=== PATIENT | female | born 1950 | race Caucasian/White ===

== ENCOUNTER 2016-06-12 14:12 | Inpatient (IN) | payer MEDICARE, MEDICAID ==
[~2016-06-12] VITALS: Ht 154.9 cm; Wt 73.8 kg
[2016-06-12] MEDS ORDERED: CEFTRIAXONE 1 GM VIAL ONE (20:59)
[2016-06-12] MEDS ORDERED: SODIUM CHLORIDE 0.9% 1,000 ML ONE (21:00)
[2016-06-12] MEDS ORDERED: SODIUM CHLORIDE 0.9% 100 ML IV ONE (21:00)
[2016-06-12] MEDS ORDERED: VANCOMYCIN 1,500 MG in SODIUM CHLORIDE 0.9% 250 ML IV ONE (22:40)
[2016-06-12] MEDS ORDERED: DEXTROSE 50% SYRINGE 50 ML IV PRN (23:20)
[2016-06-12] MEDS ORDERED: GLUCAGON 1 MG VIAL IM PRN (23:20)
[2016-06-12] MEDS ORDERED: ACETAMINOPHEN 325 MG TAB PO PRN (23:20)
[2016-06-13] VITALS (8 sets, daily range): BP systolic 98–150; RESP 18–20; TEMP 97.7–99.5; Ht 154.9 cm; Wt 73.8 kg
[2016-06-13] MEDS: SOD CHLOR 0.9% 1000 ML IV SCH ×2 (02:58→12:02)
[2016-06-13] MEDS: CEFTRIAXONE 1 GM in SODIUM CHLORIDE 0.9% 50 ML IV SCH (09:11)
[2016-06-13] MEDS ORDERED: PHARMACY TO DOSE VANCOMYCIN IM SCH (10:15)
[2016-06-13] MEDS ORDERED: PHARMACY TO DOSE VANCOMYCIN IV SCH (10:35)
[2016-06-13] MEDS ORDERED: DILTIAZEM CD 240 MG CAP PO SCH (11:45)
[2016-06-13] MEDS: DUONEB INH SCH ×4 (12:20→22:48)
[2016-06-13] MEDS: NEB-BUDESONIDE 0.5 MG INH SCH ×2 (12:20→18:31)
[2016-06-13] MEDS ORDERED: SODIUM CHLORIDE 0.9% 1,000 ML IV SCH (14:00)
[2016-06-13] MEDS: OXYBUTYNIN 5 MG TAB PO SCH ×2 (14:05→21:38)
[2016-06-13] MEDS: PAROXETINE HCL 20 MG TAB PO SCH (14:05)
[2016-06-13] MEDS: FAMOTIDINE 20 MG TAB PO SCH ×2 (14:05→21:38)
[2016-06-13] MEDS: SACCHA BOULARDII 250MG CAP PO SCH ×3 (14:05→21:38)
[2016-06-13] MEDS: EZETIMIBE 10 MG TAB PO SCH (14:06)
[2016-06-13] MEDS: DULoxetine 30 MG CAP PO SCH (14:06)
[2016-06-13] MEDS: PIOGLITAZONE 15 MG TAB PO SCH (14:06)
[2016-06-13] MEDS: CYANOCOBA 500 MCG TAB PO SCH (14:06)
[2016-06-13] MEDS: GABAPENTIN 100 MG CAP PO SCH ×3 (14:06→21:38)
[2016-06-13] MEDS: METOPROLOL TART 25 MG TAB PO SCH ×2 (14:06→21:38)
[2016-06-13] MEDS: MAG OXIDE 400 MG TAB PO SCH ×2 (14:07→21:38)
[2016-06-13] MEDS ORDERED: KCL CR 10 MEQ CAP PO ONE (15:50)
[2016-06-13] MEDS: LIDOCAINE 5% 700 MG PATCH TOPICAL SCH (16:29)
[2016-06-14] MEDS ORDERED: VANCOMYCIN 1,500 MG in SODIUM CHLORIDE 0.9% 250 ML IV SCH (01:00)
[2016-06-14 04:24] VITALS: BP_SYST 117; RESP 18; TEMP 98.2
[2016-06-14] MEDS: NEB-BUDESONIDE 0.5 MG INH SCH ×2 (07:06→19:05)
[2016-06-14] MEDS: DUONEB INH SCH ×4 (07:06→23:16)
[2016-06-14 07:42] VITALS: BP_SYST 111; RESP 18; TEMP 98.2
[2016-06-14] MEDS: DILTIAZEM CD 180 MG CAP PO SCH (09:04)
[2016-06-14] MEDS: SACCHA BOULARDII 250MG CAP PO SCH ×3 (09:04→20:59)
[2016-06-14] MEDS: PIOGLITAZONE 15 MG TAB PO SCH (09:04)
[2016-06-14] MEDS: EZETIMIBE 10 MG TAB PO SCH (09:05)
[2016-06-14] MEDS: CYANOCOBA 500 MCG TAB PO SCH (09:05)
[2016-06-14] MEDS: DULoxetine 30 MG CAP PO SCH (09:05)
[2016-06-14] MEDS: METOPROLOL TART 25 MG TAB PO SCH ×2 (09:05→21:00)
[2016-06-14] MEDS: MAG OXIDE 400 MG TAB PO SCH ×2 (09:05→20:59)
[2016-06-14] MEDS: PAROXETINE HCL 20 MG TAB PO SCH (09:05)
[2016-06-14] MEDS: FAMOTIDINE 20 MG TAB PO SCH ×2 (09:05→20:59)
[2016-06-14] MEDS: OXYBUTYNIN 5 MG TAB PO SCH ×2 (09:05→21:00)
[2016-06-14] MEDS: GABAPENTIN 100 MG CAP PO SCH ×3 (09:05→20:59)
[2016-06-14] MEDS: CEFTRIAXONE 1 GM in SODIUM CHLORIDE 0.9% 50 ML IV SCH (09:08)
[2016-06-14] MEDS: LIDOCAINE 5% 700 MG PATCH TOPICAL SCH (09:08)
[2016-06-14 11:13] VITALS: BP_SYST 108; RESP 18; TEMP 97.6
[2016-06-14] MEDS ORDERED: SODIUM CHLORIDE 0.9% 1,000 ML IV SCH (12:40)
[2016-06-14] MEDS ORDERED: EPOETIN 40,000 UNIT VIAL SUBQ ONE (12:40)
[2016-06-14] MEDS ORDERED: PHARMACY TO DOSE XX SCH (14:20)
[2016-06-14] MEDS: MAGNESIUM SULF 1 GM/100 ML 100 ML IV SCH ×2 (14:30→17:32)
[2016-06-14] MEDS ORDERED: FENTANYL 50 MCG/HR PATCH TRANSDERM SCH (14:33)
[2016-06-14 15:42] VITALS: BP_SYST 128; RESP 16; TEMP 97.6
[2016-06-14] MEDS: ERTAPENEM 1,000 MG in SODIUM CHLORIDE 0.9% 50 ML IV SCH (15:55)
[2016-06-14] MEDS ORDERED: VANCOMYCIN 1,000 MG in SODIUM CHLORIDE 0.9% 250 ML IV SCH (18:00)
[2016-06-14] MEDS ORDERED: SODIUM CHLORIDE 0.9% IV SCH (18:00)
[2016-06-14] MEDS ORDERED: SULBACTAM IV SCH (18:00)
[2016-06-14 19:58] VITALS: BP_SYST 136; RESP 20; TEMP 98
[2016-06-14 22:39] VITALS: BP_SYST 140; RESP 20; TEMP 97.8
[2016-06-15 01:42] VITALS: BP_SYST 132; RESP 18; TEMP 98.1
[2016-06-15] MEDS: DUONEB INH SCH ×4 (06:45→23:04)
[2016-06-15] MEDS: NEB-BUDESONIDE 0.5 MG INH SCH ×2 (06:45→18:49)
[2016-06-15 07:17] VITALS: BP_SYST 128; RESP 16; TEMP 98
[2016-06-15] MEDS: MAG OXIDE 400 MG TAB PO SCH ×2 (09:06→22:08)
[2016-06-15] MEDS: FAMOTIDINE 20 MG TAB PO SCH ×2 (09:07→22:08)
[2016-06-15] MEDS: METOPROLOL TART 25 MG TAB PO SCH ×2 (09:07→22:09)
[2016-06-15] MEDS: GABAPENTIN 100 MG CAP PO SCH ×3 (09:07→22:09)
[2016-06-15] MEDS: PIOGLITAZONE 15 MG TAB PO SCH (09:07)
[2016-06-15] MEDS: PAROXETINE HCL 20 MG TAB PO SCH (09:07)
[2016-06-15] MEDS: DILTIAZEM CD 180 MG CAP PO SCH (09:07)
[2016-06-15] MEDS: EZETIMIBE 10 MG TAB PO SCH (09:07)
[2016-06-15] MEDS: SACCHA BOULARDII 250MG CAP PO SCH ×3 (09:07→22:08)
[2016-06-15] MEDS: OXYBUTYNIN 5 MG TAB PO SCH ×2 (09:08→22:08)
[2016-06-15] MEDS: DULoxetine 30 MG CAP PO SCH (09:08)
[2016-06-15] MEDS: CYANOCOBA 500 MCG TAB PO SCH (09:08)
[2016-06-15] MEDS: LIDOCAINE 5% 700 MG PATCH TOPICAL SCH (09:13)
[2016-06-15 11:42] VITALS: BP_SYST 124; RESP 18; TEMP 97.8
[2016-06-15 14:50] VITALS: BP_SYST 124; RESP 16; TEMP 97.9
[2016-06-15] MEDS: ERTAPENEM 1,000 MG in SODIUM CHLORIDE 0.9% 50 ML IV SCH (16:46)
[2016-06-15 19:25] VITALS: BP_SYST 134; RESP 18; TEMP 98.1
[2016-06-15] MEDS ORDERED: SALINE FLUSH 10 ML FLUSH PRN (21:50)
[2016-06-15 23:25] VITALS: BP_SYST 120; RESP 18; TEMP 97.8
[2016-06-16 03:43] VITALS: BP_SYST 138; RESP 18; TEMP 98.2
[2016-06-16] MEDS: SODIUM CHLORIDE 0.9% FLUSH BAG 500 ML IV SCH (04:23)
[2016-06-16] MEDS: DUONEB INH SCH ×4 (07:29→22:35)
[2016-06-16] MEDS: NEB-BUDESONIDE 0.5 MG INH SCH ×2 (07:29→19:36)
[2016-06-16 08:23] VITALS: BP_SYST 136; RESP 18; TEMP 98.6
[2016-06-16] MEDS: SALINE FLUSH 10 ML FLUSH SCH ×2 (09:01→22:05)
[2016-06-16] MEDS: EZETIMIBE 10 MG TAB PO SCH (09:01)
[2016-06-16] MEDS: CYANOCOBA 500 MCG TAB PO SCH (09:02)
[2016-06-16] MEDS: MAG OXIDE 400 MG TAB PO SCH ×2 (09:02→22:05)
[2016-06-16] MEDS: FAMOTIDINE 20 MG TAB PO SCH ×2 (09:02→22:05)
[2016-06-16] MEDS: DILTIAZEM CD 180 MG CAP PO SCH (09:02)
[2016-06-16] MEDS: SACCHA BOULARDII 250MG CAP PO SCH ×3 (09:03→22:05)
[2016-06-16] MEDS: DULoxetine 30 MG CAP PO SCH (09:03)
[2016-06-16] MEDS: OXYBUTYNIN 5 MG TAB PO SCH ×2 (09:03→22:05)
[2016-06-16] MEDS: METOPROLOL TART 25 MG TAB PO SCH ×2 (09:04→22:05)
[2016-06-16] MEDS: PIOGLITAZONE 15 MG TAB PO SCH (09:04)
[2016-06-16] MEDS: GABAPENTIN 100 MG CAP PO SCH ×3 (09:04→22:05)
[2016-06-16] MEDS: PAROXETINE HCL 20 MG TAB PO SCH (09:04)
[2016-06-16] MEDS: LIDOCAINE 5% 700 MG PATCH TOPICAL SCH (09:04)
[2016-06-16 11:07] VITALS: BP_SYST 132; RESP 20; TEMP 98.8
[2016-06-16 14:46] VITALS: BP_SYST 128; RESP 20; TEMP 98.3
[2016-06-16] MEDS ORDERED: MISSING DOSE XX ONE (17:25)
[2016-06-16] MEDS: ERTAPENEM 1,000 MG in SODIUM CHLORIDE 0.9% 50 ML IV SCH (18:25)
[2016-06-16 19:50] VITALS: BP_SYST 126; RESP 18; TEMP 98.8
[2016-06-16 23:39] VITALS: BP_SYST 128; RESP 20; TEMP 97.7
[2016-06-17] MEDS ORDERED: MISSING DOSE XX ONE (00:35)
[2016-06-17] MEDS: DUONEB INH SCH ×4 (03:18→22:57)
[2016-06-17 03:27] VITALS: BP_SYST 136; RESP 18; TEMP 98.8
[2016-06-17] MEDS: NEB-BUDESONIDE 0.5 MG INH SCH ×2 (05:12→18:30)
[2016-06-17] MEDS: SODIUM CHLORIDE 0.9% FLUSH BAG 500 ML IV SCH (05:20)
[2016-06-17 07:44] VITALS: BP_SYST 142; RESP 16; TEMP 98.9
[2016-06-17] MEDS: SALINE FLUSH 10 ML FLUSH SCH ×2 (08:38→22:11)
[2016-06-17] MEDS: EZETIMIBE 10 MG TAB PO SCH (08:38)
[2016-06-17] MEDS: PAROXETINE HCL 20 MG TAB PO SCH (08:39)
[2016-06-17] MEDS: SACCHA BOULARDII 250MG CAP PO SCH ×3 (08:39→22:08)
[2016-06-17] MEDS: METOPROLOL TART 25 MG TAB PO SCH ×2 (08:39→22:09)
[2016-06-17] MEDS: GABAPENTIN 100 MG CAP PO SCH ×3 (08:39→22:08)
[2016-06-17] MEDS: OXYBUTYNIN 5 MG TAB PO SCH ×2 (08:39→22:09)
[2016-06-17] MEDS: MAG OXIDE 400 MG TAB PO SCH ×2 (08:39→22:08)
[2016-06-17] MEDS: DULoxetine 30 MG CAP PO SCH (08:39)
[2016-06-17] MEDS: FAMOTIDINE 20 MG TAB PO SCH ×2 (08:39→22:08)
[2016-06-17] MEDS: PIOGLITAZONE 15 MG TAB PO SCH (08:40)
[2016-06-17] MEDS: DILTIAZEM CD 180 MG CAP PO SCH (08:40)
[2016-06-17] MEDS: LIDOCAINE 5% 700 MG PATCH TOPICAL SCH (08:40)
[2016-06-17] MEDS: CYANOCOBA 500 MCG TAB PO SCH (08:42)
[2016-06-17 10:56] VITALS: BP_SYST 172; RESP 20; TEMP 99.1
[2016-06-17] MEDS: REMOVE FENTANYL PATCH XX SCH (13:00)
[2016-06-17] MEDS: ERTAPENEM 1,000 MG in SODIUM CHLORIDE 0.9% 50 ML IV SCH (16:01)
[2016-06-17 16:46] VITALS: BP_SYST 165; RESP 20; TEMP 98.6
[2016-06-17 20:05] VITALS: BP_SYST 130; RESP 18; TEMP 98.3
[2016-06-17 22:37] VITALS: BP_SYST 140; RESP 19; TEMP 98.3
[2016-06-18 02:45] VITALS: BP_SYST 132; RESP 18; TEMP 98.3
[2016-06-18] MEDS: SODIUM CHLORIDE 0.9% FLUSH BAG 500 ML IV SCH (05:32)
[2016-06-18] MEDS: DUONEB INH SCH ×5 (06:34→23:43)
[2016-06-18] MEDS ORDERED: MAGNEVIST 15ML IV ONE (07:24)
[2016-06-18 08:06] VITALS: BP_SYST 152; RESP 20; TEMP 97.8
[2016-06-18] MEDS: NEB-BUDESONIDE 0.5 MG INH SCH ×2 (08:13→19:19)
[2016-06-18] MEDS ORDERED: Furosemide 40 MG/4 ML VIAL IV ONE (09:45)
[2016-06-18] MEDS ORDERED: KCL CR 10 MEQ CAP PO ONE (09:45)
[2016-06-18] MEDS: MAGNESIUM SULF 1 GM/100 ML 100 ML IV SCH ×2 (10:31→12:40)
[2016-06-18] MEDS: LIDOCAINE 5% 700 MG PATCH TOPICAL SCH (10:32)
[2016-06-18] MEDS: SALINE FLUSH 10 ML FLUSH SCH ×2 (10:32→21:46)
[2016-06-18] MEDS: OXYBUTYNIN 5 MG TAB PO SCH ×2 (10:32→21:45)
[2016-06-18] MEDS: GABAPENTIN 100 MG CAP PO SCH ×2 (10:33→17:07)
[2016-06-18] MEDS: DULoxetine 30 MG CAP PO SCH (10:33)
[2016-06-18] MEDS: FAMOTIDINE 20 MG TAB PO SCH ×2 (10:33→21:45)
[2016-06-18] MEDS: SACCHA BOULARDII 250MG CAP PO SCH ×3 (10:33→21:45)
[2016-06-18] MEDS: CYANOCOBA 500 MCG TAB PO SCH (10:33)
[2016-06-18] MEDS: PAROXETINE HCL 20 MG TAB PO SCH (10:33)
[2016-06-18] MEDS: METOPROLOL TART 25 MG TAB PO SCH ×2 (10:34→21:45)
[2016-06-18] MEDS: DILTIAZEM CD 180 MG CAP PO SCH (10:34)
[2016-06-18] MEDS: EZETIMIBE 10 MG TAB PO SCH (10:34)
[2016-06-18] MEDS: PIOGLITAZONE 15 MG TAB PO SCH (10:34)
[2016-06-18] MEDS: MAG OXIDE 400 MG TAB PO SCH ×2 (10:35→21:45)
[2016-06-18 12:59] VITALS: BP_SYST 168; RESP 20; TEMP 97.7
[2016-06-18] MEDS ORDERED: FENTANYL 25 MCG/24 HR PATCH TRANSDERM SCH (13:00)
[2016-06-18] MEDS ORDERED: REMOVE FENTANYL PATCH XX SCH (13:00)
[2016-06-18] MEDS: ERTAPENEM 1,000 MG in SODIUM CHLORIDE 0.9% 50 ML IV SCH (15:28)
[2016-06-18 15:33] VITALS: BP_SYST 132; RESP 18; TEMP 97.4
[2016-06-18 20:10] VITALS: BP_SYST 140; TEMP 97.8
[2016-06-18 22:59] VITALS: BP_SYST 144; RESP 20; TEMP 98.1
[2016-06-19 02:35] VITALS: BP_SYST 140; RESP 20; TEMP 97.7
[2016-06-19] MEDS: SODIUM CHLORIDE 0.9% FLUSH BAG 500 ML IV SCH (05:08)
[2016-06-19 07:11] VITALS: BP_SYST 148; RESP 18; TEMP 97.9
[2016-06-19] MEDS: DUONEB INH SCH ×4 (07:17→22:34)
[2016-06-19] MEDS: NEB-BUDESONIDE 0.5 MG INH SCH ×2 (07:17→19:10)
[2016-06-19] MEDS: LIDOCAINE 5% 700 MG PATCH TOPICAL SCH (08:43)
[2016-06-19] MEDS: SALINE FLUSH 10 ML FLUSH SCH ×2 (08:43→20:40)
[2016-06-19] MEDS: FAMOTIDINE 20 MG TAB PO SCH ×2 (08:49→20:40)
[2016-06-19] MEDS: SACCHA BOULARDII 250MG CAP PO SCH ×3 (08:49→20:40)
[2016-06-19] MEDS: PAROXETINE HCL 20 MG TAB PO SCH (08:49)
[2016-06-19] MEDS: MAG OXIDE 400 MG TAB PO SCH ×2 (08:49→20:40)
[2016-06-19] MEDS: PIOGLITAZONE 15 MG TAB PO SCH (08:49)
[2016-06-19] MEDS: OXYBUTYNIN 5 MG TAB PO SCH ×2 (08:49→20:43)
[2016-06-19] MEDS: DILTIAZEM CD 180 MG CAP PO SCH (08:49)
[2016-06-19] MEDS: EZETIMIBE 10 MG TAB PO SCH (08:49)
[2016-06-19] MEDS: CYANOCOBA 500 MCG TAB PO SCH (08:50)
[2016-06-19] MEDS: METOPROLOL TART 25 MG TAB PO SCH ×2 (08:50→20:40)
[2016-06-19] MEDS: DULoxetine 30 MG CAP PO SCH (08:50)
[2016-06-19 11:57] VITALS: BP_SYST 134; RESP 18; TEMP 97.7
[2016-06-19] MEDS ORDERED: KCL CR 10 MEQ CAP PO ONE (13:35)
[2016-06-19 15:00] VITALS: BP_SYST 142; RESP 16; TEMP 98
[2016-06-19] MEDS: ERTAPENEM 1,000 MG in SODIUM CHLORIDE 0.9% 50 ML IV SCH (17:46)
[2016-06-19 19:51] VITALS: BP_SYST 148; RESP 16; TEMP 98.1
[2016-06-19 22:35] VITALS: BP_SYST 148; RESP 16; TEMP 98.4
[2016-06-20] MEDS: SODIUM CHLORIDE 0.9% FLUSH BAG 500 ML IV SCH (06:00)
[2016-06-20] MEDS: NEB-BUDESONIDE 0.5 MG INH SCH ×2 (07:10→19:28)
[2016-06-20] MEDS: DUONEB INH SCH ×4 (07:10→23:05)
[2016-06-20 08:18] VITALS: BP_SYST 140; RESP 18; TEMP 97.7
[2016-06-20] MEDS: SALINE FLUSH 10 ML FLUSH SCH ×2 (08:39→19:54)
[2016-06-20] MEDS: CYANOCOBA 500 MCG TAB PO SCH (08:40)
[2016-06-20] MEDS: EZETIMIBE 10 MG TAB PO SCH (08:40)
[2016-06-20] MEDS: SACCHA BOULARDII 250MG CAP PO SCH ×3 (08:41→19:44)
[2016-06-20] MEDS: PAROXETINE HCL 20 MG TAB PO SCH (08:41)
[2016-06-20] MEDS: PIOGLITAZONE 15 MG TAB PO SCH (08:41)
[2016-06-20] MEDS: METOPROLOL TART 25 MG TAB PO SCH ×2 (08:41→19:45)
[2016-06-20] MEDS: FAMOTIDINE 20 MG TAB PO SCH ×2 (08:41→19:44)
[2016-06-20] MEDS: OXYBUTYNIN 5 MG TAB PO SCH ×2 (08:41→19:44)
[2016-06-20] MEDS: DILTIAZEM CD 180 MG CAP PO SCH (08:41)
[2016-06-20] MEDS: DULoxetine 30 MG CAP PO SCH (08:42)
[2016-06-20] MEDS: LIDOCAINE 5% 700 MG PATCH TOPICAL SCH (08:43)
[2016-06-20] MEDS: MAG OXIDE 400 MG TAB PO SCH ×2 (08:56→19:45)
[2016-06-20 12:01] VITALS: BP_SYST 139; RESP 20; TEMP 97.5
[2016-06-20] MEDS: REMOVE FENTANYL PATCH XX SCH (13:00)
[2016-06-20] MEDS: ERTAPENEM 1,000 MG in SODIUM CHLORIDE 0.9% 50 ML IV SCH (15:24)
[2016-06-20 16:00] VITALS: BP_SYST 150; RESP 18; TEMP 98.2
[2016-06-20] MEDS: MAGNESIUM SULF 1 GM/100 ML 100 ML IV SCH ×2 (16:00→17:00)
[2016-06-20] MEDS: METFORMIN XR 500 MG TAB PO SCH (19:44)
[2016-06-20] MEDS: QUEtiapine 25 MG TAB PO SCH (19:45)
[2016-06-20 20:15] VITALS: BP_SYST 154; RESP 18; TEMP 97.1
[2016-06-20] MEDS: NYSTATIN 500,000 UNITS/5 ML SUSP SWISH.SWAL SCH (21:42)
[2016-06-20] MEDS: NYSTATIN PWD 100,000 UNITS/GM 15 GM TOPICAL SCH (21:43)
[2016-06-20] MEDS: FLUCONAZOLE 100 MG TAB PO SCH (21:43)
[2016-06-20 23:27] VITALS: BP_SYST 160; RESP 18; TEMP 97.6
[2016-06-21 03:08] VITALS: BP_SYST 146; RESP 20; TEMP 98.1
[2016-06-21] MEDS: SODIUM CHLORIDE 0.9% FLUSH BAG 500 ML IV SCH (04:52)
[2016-06-21] MEDS: DUONEB INH SCH ×4 (07:26→22:23)
[2016-06-21] MEDS: NEB-BUDESONIDE 0.5 MG INH SCH ×2 (07:29→19:00)
[2016-06-21 08:16] VITALS: BP_SYST 136; RESP 20; TEMP 98
[2016-06-21] MEDS: SALINE FLUSH 10 ML FLUSH SCH ×2 (09:32→20:01)
[2016-06-21] MEDS: NYSTATIN 500,000 UNITS/5 ML SUSP SWISH.SWAL SCH ×4 (09:32→20:04)
[2016-06-21] MEDS: FLUCONAZOLE 100 MG TAB PO SCH (09:33)
[2016-06-21] MEDS: PIOGLITAZONE 15 MG TAB PO SCH (09:33)
[2016-06-21] MEDS: DULoxetine 30 MG CAP PO SCH (09:33)
[2016-06-21] MEDS: DILTIAZEM CD 180 MG CAP PO SCH (09:33)
[2016-06-21] MEDS: METFORMIN XR 500 MG TAB PO SCH ×2 (09:33→20:01)
[2016-06-21] MEDS: LIDOCAINE 5% 700 MG PATCH TOPICAL SCH (09:34)
[2016-06-21] MEDS: CYANOCOBA 500 MCG TAB PO SCH (09:35)
[2016-06-21] MEDS: FAMOTIDINE 20 MG TAB PO SCH ×2 (09:35→20:01)
[2016-06-21] MEDS: NYSTATIN PWD 100,000 UNITS/GM 15 GM TOPICAL SCH ×3 (09:35→20:04)
[2016-06-21] MEDS: PAROXETINE HCL 20 MG TAB PO SCH (09:35)
[2016-06-21] MEDS: OXYBUTYNIN 5 MG TAB PO SCH ×2 (09:37→20:01)
[2016-06-21] MEDS: MAG OXIDE 400 MG TAB PO SCH ×2 (09:37→20:02)
[2016-06-21] MEDS: EZETIMIBE 10 MG TAB PO SCH (09:37)
[2016-06-21] MEDS: METOPROLOL TART 25 MG TAB PO SCH ×2 (09:37→20:01)
[2016-06-21] MEDS: SACCHA BOULARDII 250MG CAP PO SCH ×3 (09:37→20:01)
[2016-06-21 11:15] VITALS: BP_SYST 142; RESP 20; TEMP 98.3
[2016-06-21] MEDS: MAGNESIUM SULF 1 GM/100 ML 100 ML IV SCH ×2 (14:25→16:37)
[2016-06-21] MEDS: ERTAPENEM 1,000 MG in SODIUM CHLORIDE 0.9% 50 ML IV SCH (15:34)
[2016-06-21 16:24] VITALS: BP_SYST 126; RESP 20; TEMP 98
[2016-06-21 19:18] VITALS: BP_SYST 140; RESP 20; TEMP 98.4
[2016-06-21] MEDS: QUEtiapine 25 MG TAB PO SCH (20:01)
[2016-06-21] MEDS ORDERED: KCL CR 10 MEQ CAP PO ONE (20:40)
[2016-06-21] MEDS ORDERED: LOPERAMIDE 2 MG CAPSULE PO PRN (20:45)
[2016-06-21 23:20] VITALS: BP_SYST 148; TEMP 97.3
[2016-06-22] MEDS: SODIUM CHLORIDE 0.9% FLUSH BAG 500 ML IV SCH (03:33)
[2016-06-22 04:32] VITALS: BP_SYST 130; RESP 20; TEMP 97.6
[2016-06-22] MEDS: DUONEB INH SCH ×3 (07:00→18:50)
[2016-06-22] MEDS: NEB-BUDESONIDE 0.5 MG INH SCH ×2 (07:00→18:50)
[2016-06-22 07:42] VITALS: BP_SYST 148; RESP 18
[2016-06-22] MEDS: MAG OXIDE 400 MG TAB PO SCH ×2 (08:40→19:55)
[2016-06-22] MEDS: NYSTATIN 500,000 UNITS/5 ML SUSP SWISH.SWAL SCH ×4 (08:59→19:55)
[2016-06-22] MEDS: SALINE FLUSH 10 ML FLUSH SCH ×2 (08:59→19:55)
[2016-06-22] MEDS: LIDOCAINE 5% 700 MG PATCH TOPICAL SCH (08:59)
[2016-06-22] MEDS: NYSTATIN PWD 100,000 UNITS/GM 15 GM TOPICAL SCH ×3 (09:02→19:57)
[2016-06-22] MEDS: CYANOCOBA 500 MCG TAB PO SCH (09:10)
[2016-06-22] MEDS: METFORMIN XR 500 MG TAB PO SCH ×2 (09:10→20:05)
[2016-06-22] MEDS: METOPROLOL TART 25 MG TAB PO SCH ×2 (09:11→19:56)
[2016-06-22] MEDS: FAMOTIDINE 20 MG TAB PO SCH ×2 (09:11→19:56)
[2016-06-22] MEDS: PAROXETINE HCL 20 MG TAB PO SCH (09:11)
[2016-06-22] MEDS: EZETIMIBE 10 MG TAB PO SCH (09:11)
[2016-06-22] MEDS: OXYBUTYNIN 5 MG TAB PO SCH (09:11)
[2016-06-22] MEDS: DILTIAZEM CD 180 MG CAP PO SCH (09:11)
[2016-06-22] MEDS: PIOGLITAZONE 15 MG TAB PO SCH (09:11)
[2016-06-22] MEDS: DULoxetine 30 MG CAP PO SCH (09:11)
[2016-06-22] MEDS: SACCHA BOULARDII 250MG CAP PO SCH ×3 (09:11→19:56)
[2016-06-22] MEDS: FLUCONAZOLE 100 MG TAB PO SCH (09:13)
[2016-06-22 11:20] VITALS: BP_SYST 156; RESP 18; TEMP 97.1
[2016-06-22] MEDS: ERTAPENEM 1,000 MG in SODIUM CHLORIDE 0.9% 50 ML IV SCH (15:52)
[2016-06-22 16:11] VITALS: BP_SYST 150; RESP 16; TEMP 97.6
[2016-06-22] MEDS: METRONIDAZOLE 250 MG TAB PO SCH ×2 (17:38→19:56)
[2016-06-22 19:34] VITALS: BP_SYST 144; RESP 18; TEMP 97.8
[2016-06-22] MEDS ORDERED: MISSING DOSE XX ONE (19:35)
[2016-06-22] MEDS: QUEtiapine 25 MG TAB PO SCH (19:56)
[2016-06-22] MEDS: TRAMADOL 50 MG TAB PO PRN (19:59)
[2016-06-22 22:37] VITALS: BP_SYST 132; RESP 20; TEMP 98.2
[2016-06-23] MEDS: SODIUM CHLORIDE 0.9% FLUSH BAG 500 ML IV SCH (05:39)
[2016-06-23 06:41] VITALS: BP_SYST 136; RESP 18; TEMP 98.3
[2016-06-23] MEDS: NEB-BUDESONIDE 0.5 MG INH SCH ×2 (06:41→19:45)
[2016-06-23] MEDS: DUONEB INH SCH ×2 (06:42→19:45)
[2016-06-23 08:08] VITALS: BP_SYST 140; RESP 20; TEMP 97.5
[2016-06-23] MEDS: SALINE FLUSH 10 ML FLUSH SCH ×2 (08:40→20:03)
[2016-06-23] MEDS: PIOGLITAZONE 15 MG TAB PO SCH (08:44)
[2016-06-23] MEDS: DULoxetine 30 MG CAP PO SCH (08:45)
[2016-06-23] MEDS: METFORMIN XR 500 MG TAB PO SCH ×2 (08:45→20:02)
[2016-06-23] MEDS: CYANOCOBA 500 MCG TAB PO SCH (08:46)
[2016-06-23] MEDS: SACCHA BOULARDII 250MG CAP PO SCH ×3 (08:46→20:02)
[2016-06-23] MEDS: PAROXETINE HCL 20 MG TAB PO SCH (08:47)
[2016-06-23] MEDS: FAMOTIDINE 20 MG TAB PO SCH ×2 (08:47→20:02)
[2016-06-23] MEDS: METRONIDAZOLE 250 MG TAB PO SCH ×4 (08:48→20:02)
[2016-06-23] MEDS: FLUCONAZOLE 100 MG TAB PO SCH (08:48)
[2016-06-23] MEDS: DILTIAZEM CD 180 MG CAP PO SCH (08:48)
[2016-06-23] MEDS: EZETIMIBE 10 MG TAB PO SCH (08:49)
[2016-06-23] MEDS: MAG OXIDE 400 MG TAB PO SCH ×2 (08:49→20:02)
[2016-06-23] MEDS: METOPROLOL TART 25 MG TAB PO SCH ×2 (08:49→20:03)
[2016-06-23] MEDS: LIDOCAINE 5% 700 MG PATCH TOPICAL SCH (08:51)
[2016-06-23] MEDS: NYSTATIN 500,000 UNITS/5 ML SUSP SWISH.SWAL SCH ×4 (08:51→20:02)
[2016-06-23] MEDS: NYSTATIN PWD 100,000 UNITS/GM 15 GM TOPICAL SCH ×3 (08:52→20:04)
[2016-06-23 11:44] VITALS: BP_SYST 138; RESP 20; TEMP 96.9
[2016-06-23 14:53] VITALS: BP_SYST 140; RESP 16; TEMP 97.7
[2016-06-23] MEDS ORDERED: MISSING DOSE XX ONE ×2 (15:50→19:45)
[2016-06-23] MEDS: ERTAPENEM 1,000 MG in SODIUM CHLORIDE 0.9% 50 ML IV SCH (15:53)
[2016-06-23 19:58] VITALS: BP_SYST 158; RESP 20; TEMP 97.9
[2016-06-23] MEDS: QUEtiapine 25 MG TAB PO SCH (20:02)
[2016-06-23 23:44] VITALS: BP_SYST 142; RESP 20; TEMP 97.7
[2016-06-24] MEDS: TRAMADOL 50 MG TAB PO PRN (01:00)
[2016-06-24 02:54] VITALS: BP_SYST 118; RESP 18; TEMP 97.9
[2016-06-24] MEDS: SODIUM CHLORIDE 0.9% FLUSH BAG 500 ML IV SCH (04:44)
[2016-06-24] MEDS: NEB-BUDESONIDE 0.5 MG INH SCH ×3 (06:45→19:00)
[2016-06-24] MEDS: DUONEB INH SCH ×3 (06:45→19:00)
[2016-06-24] MEDS: SALINE FLUSH 10 ML FLUSH SCH ×2 (08:00→22:26)
[2016-06-24 11:00] VITALS: RESP 20
[2016-06-24] MEDS ORDERED: HALOPERIDOL 5 MG/ML VIAL IV ONE (11:10)
[2016-06-24 15:02] VITALS: BP_SYST 152; RESP 20; TEMP 97.9
[2016-06-24] MEDS: DILTIAZEM CD 180 MG CAP PO SCH (15:30)
[2016-06-24] MEDS: FLUCONAZOLE 100 MG TAB PO SCH (15:30)
[2016-06-24] MEDS: EZETIMIBE 10 MG TAB PO SCH (15:30)
[2016-06-24] MEDS: METOPROLOL TART 25 MG TAB PO SCH (15:30)
[2016-06-24] MEDS: METFORMIN XR 500 MG TAB PO SCH ×2 (15:31→21:00)
[2016-06-24] MEDS: PAROXETINE HCL 20 MG TAB PO SCH (15:31)
[2016-06-24] MEDS: METRONIDAZOLE 250 MG TAB PO SCH ×5 (15:31→22:26)
[2016-06-24] MEDS: SACCHA BOULARDII 250MG CAP PO SCH ×4 (15:31→22:27)
[2016-06-24] MEDS: MAG OXIDE 400 MG TAB PO SCH ×2 (15:31→21:00)
[2016-06-24] MEDS: PIOGLITAZONE 15 MG TAB PO SCH (15:32)
[2016-06-24] MEDS: DULoxetine 30 MG CAP PO SCH (15:32)
[2016-06-24] MEDS: CYANOCOBA 500 MCG TAB PO SCH (15:32)
[2016-06-24] MEDS: FAMOTIDINE 20 MG TAB PO SCH ×2 (15:33→21:00)
[2016-06-24] MEDS: NYSTATIN 500,000 UNITS/5 ML SUSP SWISH.SWAL SCH ×6 (15:33→21:00)
[2016-06-24] MEDS: NYSTATIN PWD 100,000 UNITS/GM 15 GM TOPICAL SCH ×3 (15:34→21:00)
[2016-06-24] MEDS: LIDOCAINE 5% 700 MG PATCH TOPICAL SCH (15:34)
[2016-06-24] MEDS ORDERED: KCL CR 10 MEQ CAP PO ONE (15:40)
[2016-06-24] MEDS ORDERED: HALOPERIDOL 5 MG/ML VIAL IV PRN (15:40)
[2016-06-24] MEDS: ERTAPENEM 1,000 MG in SODIUM CHLORIDE 0.9% 50 ML IV SCH (15:41)
[2016-06-24 20:18] VITALS: BP_SYST 122; RESP 18; TEMP 98
[2016-06-24] MEDS ORDERED: QUEtiapine 25 MG TAB PO SCH (21:00)
[2016-06-24 22:41] VITALS: BP_SYST 130; RESP 20; TEMP 97.8
[2016-06-25 03:53] VITALS: BP_SYST 132; RESP 18; TEMP 97.6
[2016-06-25] MEDS: SODIUM CHLORIDE 0.9% FLUSH BAG 500 ML IV SCH (05:21)
[2016-06-25] MEDS: DUONEB INH SCH ×2 (06:50→18:37)
[2016-06-25] MEDS: NEB-BUDESONIDE 0.5 MG INH SCH ×2 (06:50→18:37)
[2016-06-25] MEDS: SALINE FLUSH 10 ML FLUSH SCH ×2 (08:00→20:07)
[2016-06-25 08:13] VITALS: BP_SYST 130; RESP 16
[2016-06-25] MEDS: PIOGLITAZONE 15 MG TAB PO SCH (09:00)
[2016-06-25] MEDS: DILTIAZEM CD 180 MG CAP PO SCH (09:00)
[2016-06-25] MEDS: CYANOCOBA 500 MCG TAB PO SCH (09:00)
[2016-06-25] MEDS: LIDOCAINE 5% 700 MG PATCH TOPICAL SCH (09:00)
[2016-06-25] MEDS: DULoxetine 30 MG CAP PO SCH (09:00)
[2016-06-25] MEDS: NYSTATIN 500,000 UNITS/5 ML SUSP SWISH.SWAL SCH ×4 (09:00→21:16)
[2016-06-25] MEDS: METFORMIN XR 500 MG TAB PO SCH ×2 (09:00→21:18)
[2016-06-25] MEDS: NYSTATIN PWD 100,000 UNITS/GM 15 GM TOPICAL SCH ×3 (09:00→20:07)
[2016-06-25] MEDS: FAMOTIDINE 20 MG TAB PO SCH ×2 (09:00→21:17)
[2016-06-25] MEDS: METRONIDAZOLE 250 MG TAB PO SCH ×4 (09:00→21:17)
[2016-06-25] MEDS: SACCHA BOULARDII 250MG CAP PO SCH ×3 (09:00→21:17)
[2016-06-25] MEDS: MAG OXIDE 400 MG TAB PO SCH (09:00)
[2016-06-25] MEDS: PAROXETINE HCL 20 MG TAB PO SCH (09:00)
[2016-06-25] MEDS: EZETIMIBE 10 MG TAB PO SCH (09:00)
[2016-06-25 10:46] VITALS: BP_SYST 142; RESP 18; TEMP 97.4
[2016-06-25] MEDS: TRAMADOL 50 MG TAB PO PRN (11:08)
[2016-06-25] MEDS ORDERED: MISSING DOSE XX ONE (12:30)
[2016-06-25 14:59] VITALS: BP_SYST 128; RESP 18; TEMP 97.3
[2016-06-25 20:09] VITALS: BP_SYST 144; RESP 18; TEMP 97.7
[2016-06-25] MEDS: QUEtiapine 100 MG TAB PO SCH (21:17)
[2016-06-26 00:56] VITALS: BP_SYST 134; RESP 18; TEMP 97.3
[2016-06-26] MEDS: SODIUM CHLORIDE 0.9% FLUSH BAG 500 ML IV SCH (06:00)
[2016-06-26] MEDS: NEB-BUDESONIDE 0.5 MG INH SCH ×2 (07:00→19:13)
[2016-06-26] MEDS: DUONEB INH SCH ×2 (07:00→19:13)
[2016-06-26 07:55] VITALS: BP_SYST 142; RESP 18; TEMP 97.6
[2016-06-26] MEDS: CYANOCOBA 500 MCG TAB PO SCH (10:22)
[2016-06-26] MEDS: METFORMIN XR 500 MG TAB PO SCH ×2 (10:23→20:46)
[2016-06-26] MEDS: METRONIDAZOLE 250 MG TAB PO SCH ×4 (10:23→20:46)
[2016-06-26] MEDS: PAROXETINE HCL 20 MG TAB PO SCH (10:23)
[2016-06-26] MEDS: SACCHA BOULARDII 250MG CAP PO SCH ×3 (10:24→20:46)
[2016-06-26] MEDS: DULoxetine 30 MG CAP PO SCH (10:24)
[2016-06-26] MEDS: DILTIAZEM CD 180 MG CAP PO SCH (10:24)
[2016-06-26] MEDS: EZETIMIBE 10 MG TAB PO SCH (10:24)
[2016-06-26] MEDS: PIOGLITAZONE 15 MG TAB PO SCH (10:24)
[2016-06-26] MEDS: FAMOTIDINE 20 MG TAB PO SCH ×2 (10:24→20:46)
[2016-06-26] MEDS: NYSTATIN 500,000 UNITS/5 ML SUSP SWISH.SWAL SCH ×4 (10:25→20:43)
[2016-06-26] MEDS: SALINE FLUSH 10 ML FLUSH SCH ×2 (10:25→20:43)
[2016-06-26] MEDS: LIDOCAINE 5% 700 MG PATCH TOPICAL SCH (10:26)
[2016-06-26] MEDS: NYSTATIN PWD 100,000 UNITS/GM 15 GM TOPICAL SCH ×3 (10:28→20:44)
[2016-06-26 10:53] VITALS: BP_SYST 134; RESP 18; TEMP 97
[2016-06-26] MEDS ORDERED: KCL CR 10 MEQ CAP PO ONE ×2 (12:20→17:00)
[2016-06-26 16:19] VITALS: BP_SYST 140; RESP 18; TEMP 97.6
[2016-06-26 19:34] VITALS: BP_SYST 148; RESP 20; TEMP 97.1
[2016-06-26] MEDS: QUEtiapine 100 MG TAB PO SCH (20:46)
[2016-06-27 00:50] VITALS: BP_SYST 140; RESP 20; TEMP 97.8
[2016-06-27 05:50] VITALS: BP_SYST 150; RESP 18; TEMP 98.2
[2016-06-27] MEDS: SODIUM CHLORIDE 0.9% FLUSH BAG 500 ML IV SCH (05:52)
[2016-06-27] MEDS: NEB-BUDESONIDE 0.5 MG INH SCH (06:28)
[2016-06-27] MEDS: DUONEB INH SCH (06:28)
[2016-06-27 07:22] VITALS: BP_SYST 142; RESP 18; TEMP 97.4
[2016-06-27] MEDS: SALINE FLUSH 10 ML FLUSH SCH (09:56)
[2016-06-27] MEDS: DULoxetine 30 MG CAP PO SCH (09:57)
[2016-06-27] MEDS: METRONIDAZOLE 250 MG TAB PO SCH ×3 (09:57→17:29)
[2016-06-27] MEDS: PIOGLITAZONE 15 MG TAB PO SCH (09:57)
[2016-06-27] MEDS: SACCHA BOULARDII 250MG CAP PO SCH ×2 (09:57→16:23)
[2016-06-27] MEDS: DILTIAZEM CD 180 MG CAP PO SCH (09:58)
[2016-06-27] MEDS: METFORMIN XR 500 MG TAB PO SCH (09:58)
[2016-06-27] MEDS: FAMOTIDINE 20 MG TAB PO SCH (09:58)
[2016-06-27] MEDS: EZETIMIBE 10 MG TAB PO SCH (09:58)
[2016-06-27] MEDS: NYSTATIN 500,000 UNITS/5 ML SUSP SWISH.SWAL SCH ×3 (09:58→17:29)
[2016-06-27] MEDS: PAROXETINE HCL 20 MG TAB PO SCH (09:58)
[2016-06-27] MEDS: CYANOCOBA 500 MCG TAB PO SCH (09:58)
[2016-06-27] MEDS: LIDOCAINE 5% 700 MG PATCH TOPICAL SCH (09:59)
[2016-06-27] MEDS: NYSTATIN PWD 100,000 UNITS/GM 15 GM TOPICAL SCH ×2 (10:00→16:23)
[2016-06-27 10:44] VITALS: BP_SYST 140; RESP 16; TEMP 97.8
[2016-06-27] MEDS ORDERED: SODIUM CHLORIDE 0.9% 250 ML IV ONE (14:25)
[2016-06-27] MEDS ORDERED: SODIUM CHLORIDE 0.9% 1,000 ML IV SCH (14:25)
[2016-06-27 15:07] VITALS: BP_SYST 142; RESP 16; TEMP 97.1
[2016-06-27 17:12] VITALS: BP_SYST 142; RESP 16; TEMP 97.1
== END 2016-06-27 18:37 | DRG 871 ==
LOC: ENRESERVDT → ENRESERVTM → ER 14:12 → EMR 21:44 → ENPENDDIS 21:44 → 4NT 06-13 00:29
PROVIDERS: ADMIT Internal Medicine; ATTEND Internal Medicine
DX: A40.3 Sepsis due to Streptococcus pneumoniae (principal); J18.9 Pneumonia, unspecified organism; A04.7 Enterocolitis due to Clostridium difficile; J44.0 Chronic obstructive pulmonary disease with (acute) lower respiratory infection; N39.0 Urinary tract infection, site not specified; E11.9 Type 2 diabetes mellitus without complications; F32.9 Major depressive disorder, single episode, unspecified; B96.20 Unspecified Escherichia coli [E. coli] as the cause of diseases classified elsewhere; J44.1 Chronic obstructive pulmonary disease with (acute) exacerbation; G47.33 Obstructive sleep apnea (adult) (pediatric); R33.9 Retention of urine, unspecified; M54.9 Dorsalgia, unspecified; R53.1 Weakness; R26.9 Unspecified abnormalities of gait and mobility; Z90.49 Acquired absence of other specified parts of digestive tract; Z86.14 Personal history of Methicillin resistant Staphylococcus aureus infection; M25.552 Pain in left hip; Z16.30 Resistance to unspecified antimicrobial drugs; T42.6X5A Adverse effect of other antiepileptic and sedative-hypnotic drugs, initial encounter; T39.95XA Adverse effect of unspecified nonopioid analgesic, antipyretic and antirheumatic, initial encounter; J45.909 Unspecified asthma, uncomplicated; Z79.4 Long term (current) use of insulin
CPT/HCPCS: 36415; 36600; 71010; 71020; 72158; 73700; 76770; 80048; 80053; 80061; 81001; 82306; 82565; 82607; 82728; 82746; 82803; 82947; 83036; 83540; 83605; 83735; 83880; 84439; 84443; 84466; 84520; 84550; 85007; 85025; 85027; 85652; 86141; 87040; 87077; 87088; 87186; 87493; 93005; 93306; 94640; 94799; 96361; 96365; 96372